=== PATIENT | female | born 1970 | race Caucasian/White ===

== ENCOUNTER 2021-09-30 11:02 | Observation (INO) ==
[2021-09-30] MEDS ORDERED: MORPHINE SULFATE INJ 2 MG INJ IVP PRN ×2 (12:00→13:00)
[2021-09-30] MEDS ORDERED: NORCO 7.5/325 MG TAB PO PRN (12:00)
--- NOTE | 2021-09-30 12:27 | DR.PROGNOT ---
Hospital Progress Notes - Progress Note for Day of: Progress Note Date: 09/30/21 - Chief Complaint Chief Complaint: c/o epigastric and RUQ pain more after any kind of food with nausea .. the pain is severe at times . she in having Wt loss as well . had GB US and biliary scan with normal findings . - Past Medical Family Social History Past Med/Fam/Surg Hx: No changes since H&P Allergies: Allergies latex Allergy (Verified 12/18/20 09:36) clarithromycin [From Biaxin] Adverse Reaction (Verified 12/18/20 09:36) - Review Of Systems ROS: No change since H&P - Vital Signs Vital Signs: Temperature 98.0 F Pulse Rate [Right Radial] 84 Respiratory Rate 20 Blood Pressure [Left Arm] 128/62 - Physical Exam Oriented: Normal Eyes: Normal Ear: Normal Nose: Normal Throat: Normal Cardiovascular: Normal : Normal GI:Auscultation: Decreased GI:Palpation: Normal GI: Tenderness: RUQ, Epigastric (soft abdomen with moderate epigastric and RUQ tenderness ) - Assessment and Plan 1: abdominal pain . PUD . Gastritis . cholecystitis . for EGD .
[2021-09-30 12:40] LABS: BASOPHILS % (AUTO) 0.5 % (0.2-1.0); EOSINOPHILS % (AUTO) 0.7 % (0.9-2.9); HEMATOCRIT 34.6 % (36.0-47.0); HEMOGLOBIN 11.8 g/dL (12.0-16.0); LYMPHOCYTES # (AUTO) 1.5 X10^3/uL (1.3-2.9); MEAN CORPUSCULAR HEMOGLOBIN 30.5 pg (27.0-34.0); MEAN CORPUSCULAR HGB CONC 34.1 g/dL (33.0-35.0); MEAN CORPUSCULAR VOLUME 89.6 fL (80.0-100.0); MEAN PLATELET VOLUME 8.1 fL (7.4-11.0); MONOCYTES # (AUTO) 0.5 x10^3/uL (0.3-0.8); MONOCYTES % (AUTO) 11.4 % (0.0-13.0); NEUTROPHILS # (AUTO) 2.2 x10^3/uL (2.2-4.8); NEUTROPHILS % (AUTO) 51.4 % (42.0-75.0); RED BLOOD COUNT 3.86 X10^6/uL (3.5-5.4); RED CELL DISTRIBUTION WIDTH 19.4 % (11.6-16.5); WHITE BLOOD COUNT 4.2 X10^3/uL (3.6-10.0)
[2021-09-30 12:53] LABS: ALANINE AMINOTRANSFERASE 54 Units/L (12-78); ALBUMIN 3.5 g/dL (3.4-5.0); ALKALINE PHOSPHATASE 52 Units/L (46-116); ASPARTATE AMINO TRANSFERASE 31 Units/L (15-37); BLOOD UREA NITROGEN 6 mg/dL (7-18); CALCIUM 8.5 mg/dL (8.5-10.1); CARBON DIOXIDE 25.6 mmol/L (21-32); CHLORIDE 103 mmol/L (98-107); SODIUM 139 mmol/L (136-145); TOTAL PROTEIN 6.4 g/dL (6.4-8.2); eGFR NON BLACK RACES > 60 (>60)
[2021-09-30] MEDS ORDERED: DIPRIVAN VIAL 20 ML ONE (12:53)
--- NOTE | 2021-09-30 12:54 | DR.H&P ---
H&P History & Physical for Day of: H&P Date: 09/30/21 Chief Complaint Chief Complaint: Right upper quadrant pain. Allergies Allergies Allergy/AdvReac Type Severity Reaction Status Date / Time latex Allergy Verified 12/18/20 09:36 clarithromycin [From Biaxin] AdvReac Verified 12/18/20 09:36 History of Present Illness History of Present Illness: This is a 51-year-old white female who was direct admitted by me today for intractable right upper quadrant pain. She reports having the right upper quadrant pain for a number of months now. It is worse when she is eating. The pain is burning in sensation and sharp in nature. She reports having lost nearly 30 pounds in the last number of months because of this pain is causing her to be unable to eat. She has nausea and occasional vomiting with this pain. Denies diarrhea, chest pain, cough and also reports some shortness of breath at times. She denies melena and hematochezia as well. Past Medical History Past Medical History: Anxiety, Depression, Migraines, GERD, Headaches and Hypothyroidism Past Surgical History Surgical History: Hysterectomy and Thyroidectomy Family History Family Medical History: Diabetes Mellitus, [place], Coronary Artery Disease, Heart Failure and Hypertension Social History Does patient currently use any type of tobacco product: No Have you used tobacco products in the last 12 months: No Alcohol Use: Occasionally Drug Use: None Medications Home Medications: latex Allergy (Verified 12/18/20 09:36) clarithromycin [From Biaxin] Adverse Reaction (Verified 12/18/20 09:36) Labs Result Diagrams: 09/30/21 12:23 09/30/21 12:23 Labs: Laboratory WBC 4.2 X10^3/uL (3.6-10.0) 09/30/21 12: RBC 3.86 X10^6/uL (3.5-5.4) 09/30/21 12: Hgb 11.8 g/dL (12.0-16.0) L 09/30/21 12: Hct 34.6 % (36.0-47.0) L 09/30/21 12:23 MCV 89.6 fL (80.0-100.0) 09/30/21 12: MCH 30.5 pg (27.0-34.0) 09/30/21 12: MCHC 34.1 g/dL (33.0-35.0) 09/30/21 12: RDW 19.4 % (11.6-16.5) H 09/30/21 12: Plt Count 337 X10^3/uL (150.0-450.0) 09/30/21 12: MPV 8.1 fL (7.4-11.0) 09/30/21 12: Neut % (Auto) 51.4 % (42.0-75.0) 09/30/21 12: Lymph % (Auto) 36.0 % (21.0-51.0) 09/30/21 12: [place] % (Auto) 11.4 % (0.0-13.0) 09/30/21 12: Eos % (Auto) 0.7 % (0.9-2.9) L 09/30/21 12: Baso % (Auto) 0.5 % (0.2-1.0) 09/30/21 12: Neut # (Auto) 2.2 x10^3/uL (2.2-4.8) 09/30/21 12: Lymph # (Auto) 1.5 X10^3/uL (1.3-2.9) 09/30/21 12: [place] # (Auto) 0.5 x10^3/uL (0.3-0.8) 09/30/21 12: Eos # (Auto) 0.0 x10^3/uL (0.0-0.2) 09/30/21 12: Baso # (Auto) 0.0 X10^3/uL (0.0-0.1) 09/30/21 12: Absolute Nucleated RBC 0.1 /100WBC 09/30/21 12:23 Review of Systems Constitutional: Weakness Eyes: No Symptoms Reported ENT: No Symptoms Reported Respiratory: Shortness of Breath Cardiovascular: No Symptoms Reported Gastrointestinal: Nausea, Vomiting and Abdominal Pain Genitourinary: No Symptoms Reported Musculoskeletal: No Symptoms Reported Skin: No Symptoms Reported Neurological: No Symptoms Reported Physical Exam Vital Signs: Temperature 98.0 F Pulse Rate [Right Radial] 84 Respiratory Rate 20 Blood Pressure [Left Arm] 128/62 O2 Sat by Pulse Oximetry 99 Oriented: Normal, Time, Person and Place Eyes: Normal Ear: Normal Nose: Normal Throat: Normal Respiratory: Clear Throughout Cardiovascular: Normal : Normal Auscultation: Bowel Sounds: Normal Palpation: Normal Tenderness: RUQ Skin: Normal Musculoskeletal: Normal Psychiatric: Normal Mood Description: Calm Affect: Normal Speech Pattern: Clear and Appropriate Assessment/Plan (1) Right upper quadrant pain: Status: Acute Plan: Check gallbladder ultrasound. Check LFTs. Consult general surgeon Dr. Liu. (2) History of hypothyroidism: Status: Acute Plan: continue home thyroid medication (3) Nausea and vomiting: Status: Acute Plan: IV Zofran. (4) Anemia: Narrative Support Text: The patient has a history of chronic anemia. Status: Acute Plan: Monitor hemoglobin daily. Review H&P Reviewed: Yes Patient was examined?: Yes
[2021-09-30] MEDS ORDERED: D5 LR 1,000 ML 1,000 ML IV ONE (12:55)
[2021-09-30] MEDS: NS 1,000 ML IV 1,000 ML IV SCH ×2 (13:44→21:34)
[2021-09-30] MEDS: PROTONIX INJ 40 MG VIAL IVP SCH (13:46)
[2021-09-30 13:50] VITALS: BMI 18.5
--- NOTE | 2021-09-30 17:13 | US ---
HISTORYReason For StudySTUDYGALL BLADDERCOMPARISONNoneTECHNIQUEMultiple cordova scale and color flow Doppler images of the right upper quadrant were obtained.FINDINGSThe liver is normal in echotexture and size . No focal intraparenchymal mass or intrahepatic biliary ductal dilatation can be observed. The gallbladder fails to demonstrate evidence for cholelithiasis or layering sludge . The common bile duct is unremarkable measuring 2 mm in width.. No pericholecystic fluid or gallbladder wall thickening can be observed .The right kidney appears normal in size without focal parenchymal mass or nephrolithiasis. The right kidney measurers 9 cm in length no hydronephrosis or perirenal fluid can be observed. The pancreatic head and body are unremarkable. The pancreatic tail is largely obscured by overlying bowel gas.IMPRESSIONUnremarkable examination of the right upper quadrant.Electronically signed by: ONEYDA BOB (Sep 30, 2021 17:13:09)
[2021-09-30] MEDS: ZOFRAN INJ 4 MG VIAL IVP PRN (23:21)
[2021-10-01 05:15] LABS: BASOPHILS % (AUTO) 0.8 % (0.2-1.0); EOSINOPHILS # (AUTO) 0.1 x10^3/uL (0.0-0.2); EOSINOPHILS % (AUTO) 1.5 % (0.9-2.9); HEMOGLOBIN 10.2 g/dL (12.0-16.0); LYMPHOCYTES # (AUTO) 1.7 X10^3/uL (1.3-2.9); LYMPHOCYTES % (AUTO) 40.4 % (21.0-51.0); MEAN CORPUSCULAR HEMOGLOBIN 30.4 pg (27.0-34.0); MEAN CORPUSCULAR HGB CONC 33.8 g/dL (33.0-35.0); MEAN PLATELET VOLUME 8.5 fL (7.4-11.0); MONOCYTES # (AUTO) 0.5 x10^3/uL (0.3-0.8); MONOCYTES % (AUTO) 11.6 % (0.0-13.0); NEUTROPHILS # (AUTO) 1.9 x10^3/uL (2.2-4.8); NEUTROPHILS % (AUTO) 45.7 % (42.0-75.0); RED BLOOD COUNT 3.34 X10^6/uL (3.5-5.4); RED CELL DISTRIBUTION WIDTH 19.1 % (11.6-16.5); WHITE BLOOD COUNT 4.1 X10^3/uL (3.6-10.0)
[2021-10-01 05:32] LABS: ALANINE AMINOTRANSFERASE 43 Units/L (12-78); ALBUMIN 2.6 g/dL (3.4-5.0); ALKALINE PHOSPHATASE 43 Units/L (46-116); ASPARTATE AMINO TRANSFERASE 27 Units/L (15-37); BLOOD UREA NITROGEN 4 mg/dL (7-18); CALCIUM 7.8 mg/dL (8.5-10.1); CARBON DIOXIDE 23.7 mmol/L (21-32); CHLORIDE 108 mmol/L (98-107); COR CA(FOR HYPOALB) 8.9 mg/dL (8.5-10.1); CREATININE 0.74 mg/dL (0.55-1.02); SODIUM 141 mmol/L (136-145); TOTAL PROTEIN 5.2 g/dL (6.4-8.2); eGFR NON BLACK RACES > 60 (>60)
[2021-10-01] MEDS: NS 1,000 ML IV 1,000 ML IV SCH ×3 (05:51→17:15)
[2021-10-01] MEDS: PROTONIX INJ 40 MG VIAL IVP SCH (08:19)
--- NOTE | 2021-10-01 12:01 | DR.PROGNOT ---
Hospital Progress Notes - Progress Note for Day of: Progress Note Date: 10/01/21 - Chief Complaint Chief Complaint: c/o epigastric and RUQ pain today .. lab work was WNL. EGD showed moderate gastritis .no ulcers, obstruction or bleeding. afebrile .. soft , flat abdomen .. - Past Medical Family Social History Past Med/Fam/Surg Hx: No changes since H&P Allergies: Allergies latex Allergy (Verified 09/30/21 13:10) clarithromycin [From Biaxin] Adverse Reaction (Verified 09/30/21 13:10) - Review Of Systems ROS: No change since H&P - Vital Signs Vital Signs: Temperature 98.5 F Pulse Rate [Right Radial] 80 Respiratory Rate 18 Blood Pressure [Left Arm] 136/66 O2 Sat by Pulse Oximetry 99 - Physical Exam Oriented: Normal, Time, Person, Place Eyes: Normal Ear: Normal Nose: Normal Throat: Normal Cardiovascular: Normal : Normal GI:Auscultation: Normal GI:Palpation: Normal GI: Tenderness: RUQ Skin: Normal Musculoskeletal: Normal Psychiatric: Normal Mood Description: Calm Affect: Normal Speech Pattern: Clear, Appropriate - Laboratory and Diagnostics Result Diagrams: 10/01/21 04:36 10/01/21 04:36 Labs: Laboratory WBC 4.1 X10^3/uL (3.6-10.0) 10/01/21 04:36 RBC 3.34 X10^6/uL (3.5-5.4) L 10/01/21 04:36 Hgb 10.2 g/dL (12.0-16.0) L 10/01/21 04:36 Hct 30.0 % (36.0-47.0) L 10/01/21 04:36 MCV 90.0 fL (80.0-100.0) 10/01/21 04:36 MCH 30.4 pg (27.0-34.0) 10/01/21 04:36 MCHC 33.8 g/dL (33.0-35.0) 10/01/21 04:36 RDW 19.1 % (11.6-16.5) H 10/01/21 04:36 Plt Count 282 X10^3/uL (150.0-450.0) 10/01/21 04:36 MPV 8.5 fL (7.4-11.0) 10/01/21 04:36 Neut % (Auto) 45.7 % (42.0-75.0) 10/01/21 04:36 Lymph % (Auto) 40.4 % (21.0-51.0) 10/01/21 04:36 Bell % (Auto) 11.6 % (0.0-13.0) 10/01/21 04:36 Eos % (Auto) 1.5 % (0.9-2.9) 10/01/21 04:36 Baso % (Auto) 0.8 % (0.2-1.0) 10/01/21 04:36 Neut # (Auto) 1.9 x10^3/uL (2.2-4.8) L 10/01/21 04:36 Lymph # (Auto) 1.7 X10^3/uL (1.3-2.9) 10/01/21 04:36 Bell # (Auto) 0.5 x10^3/uL (0.3-0.8) 10/01/21 04:36 Eos # (Auto) 0.1 x10^3/uL (0.0-0.2) 10/01/21 04:36 Baso # (Auto) 0.0 X10^3/uL (0.0-0.1) 10/01/21 04:36 Absolute Nucleated RBC 0.2 /100WBC 10/01/21 04:36 Sodium 141 mmol/L (136-145) 10/01/21 04:36 Corrected Sodium TNP 10/01/21 04:36 Potassium 3.7 mmol/L (3.5-5.1) 10/01/21 04:36 Chloride 108 mmol/L (98-107) H 10/01/21 04:36 Carbon Dioxide 23.7 mmol/L (21-32) 10/01/21 04:36 BUN 4 mg/dL (7-18) L 10/01/21 04:36 Creatinine 0.74 mg/dL (0.55-1.02) 10/01/21 04:36 Est GFR (MDRD) Af Amer > 60 (>60) 10/01/21 04:36 Est GFR (MDRD) Non-Af > 60 (>60) 10/01/21 04:36 Glucose 72 mg/dL (65-99) 10/01/21 04:36 Calcium 7.8 mg/dL (8.5-10.1) L 10/01/21 04:36 Corrected Calcium 8.9 mg/dL (8.5-10.1) 10/01/21 04:36 Total Bilirubin 0.20 mg/dL (0.2-1.0) 10/01/21 04:36 AST 27 Units/L (15-37) 10/01/21 04:36 ALT 43 Units/L (12-78) 10/01/21 04:36 Alkaline Phosphatase 43 Units/L (46-116) L 10/01/21 04:36 Total Protein 5.2 g/dL (6.4-8.2) L 10/01/21 04:36 Albumin 2.6 g/dL (3.4-5.0) L 10/01/21 04:36 Globulin 2.6 g/dL (2.5-4.5) 10/01/21 04:36 Albumin/Globulin Ratio 1.0 Ratio (1.1-2.1) L 10/01/21 04:36 Tissue Pathology To follow 09/30/21 13:07 - Assessment and Plan 1: abdominal pain . moderate Gastritis . Pr is having biliary scan today .. to advance diet after the test
[2021-10-01] MEDS ORDERED: MAALOX or MYLANTA PO PRN (12:28)
--- NOTE | 2021-10-01 12:36 | NM ---
HISTORY: RUQ pain, nausea. Abdominal pain.EXAM: Nuclear Medicine HIDA ExamTechnique: Multiple scintigraphic images of the abdomen were obtained the intravenous administration of 5.5 mCi of technetium labeled Choletec.Following distention of the gallbladder with radiotracer a bottle of Ensure was given.An estimated gallbladder ejection fraction was calculated based on this physiologic response.Findings: Homogeneous uptake of radiotracer is seen throughout the liver. The intrabiliary ductal system is observed normally. The common hepatic and common bile duct grossly appear unremarkable with normal biliary-bowel transit. The gallbladder is observed to fill normally without evidence for acute cholecystitis. After the administration of ensure, however, an abnormally low gallbladder ejection fraction of 20% (normal > 35%) is observed. Although many etiologies (certain medications, cholangitis, pancreatitis, sepsis, etc.) can account for a low gallbladder ejection fraction, in the outpatient setting, the most common etiology is chronic cholecystitis.IMPRESSION:1. Hepatobiliary imaging study demonstrates no evidence for acute hepatic dysfunction or acute cholecystitis.2. Low gallbladder ejection fraction of 20%, as discussed above.Electronically signed by: MARY PENA III (Oct 01, 2021 12:36:21)
[2021-10-01] MEDS ORDERED: DECADRON INJ ONE (17:34)
[2021-10-01] MEDS ORDERED: REGLAN INJ 10 MG VIAL ONE (17:34)
[2021-10-01] MEDS ORDERED: ZEMURON 100 MG VIAL ONE (17:34)
[2021-10-01] MEDS ORDERED: BRIDION ONE (17:34)
[2021-10-01] MEDS ORDERED: PEPCID 20 MG VIAL ONE (17:34)
[2021-10-01] MEDS ORDERED: XYLOCAINE 2 % (PLAIN) ONE (17:34)
[2021-10-01] MEDS ORDERED: TORADOL 30 MG VIAL ONE (17:34)
[2021-10-01] MEDS ORDERED: DIPRIVAN VIAL 20 ML ONE (17:34)
[2021-10-01] MEDS ORDERED: ZOFRAN INJ 4 MG VIAL ONE (17:34)
[2021-10-01] MEDS ORDERED: OFIRMEV IV 1000 MG VIAL 1,000 MG/100 ML VIAL IV ONE (17:38)
[2021-10-01] MEDS ORDERED: BARHEMSYS INJ ONE (18:25)
[2021-10-01] MEDS ORDERED: SUPRANE ONE (18:26)
--- NOTE | 2021-10-01 20:25 | PCM.PROG ---
Progress Note Progress Note for Day of Date of Exam: 10/01/21 Subjective Subjective: The patient reports she is still having epigastric and right upper quadrant pain. The gallbladder ultrasound is negative for gallstones and sludge. She had EGD yesterday that showed some gastritis but no ulcers. She is to have a HIDA scan later today and will follow up with the results when available. Past Medical Family Social History Past Med/Fam/Surg Hx: No changes since H&P Allergies: Allergies latex Allergy (Verified 09/30/21 13:10) clarithromycin [From Biaxin] Adverse Reaction (Verified 09/30/21 13:10) Review of Systems ROS: No change since H&P Vital Signs and I&O's Vital Signs: Temperature 98.9 F Pulse Rate [Right Radial] 85 Respiratory Rate 18 Blood Pressure [Left Arm] 135/70 O2 Sat by Pulse Oximetry 100 Intake and Output: Intake & Output 09/29/21 09/30/21 10/01/21 10/02/21 11:59 11:59 11:59 11:59 Intake Total 2844 / 2844 480 / 480 Balance 2844 / 2844 480 / 480 Physical Exam Oriented: Normal, Time, Person and Place Eyes: Normal Ear: Normal Nose: Normal Throat: Normal Respiratory: Normal Cardiovascular: Normal : Normal Auscultation: Bowel Sounds: Normal Tenderness: RUQ and Epigastric Skin: Normal Musculoskeletal: Normal Psychiatric: Normal Mood Description: Calm Affect: Normal Speech Pattern: Clear and Appropriate Laboratory and Diagnostics Result Diagrams: 10/01/21 04:36 10/01/21 04:36 Labs: Laboratory WBC 4.1 X10^3/uL (3.6-10.0) 10/01/21 04:36 RBC 3.34 X10^6/uL (3.5-5.4) L 10/01/21 04:36 Hgb 10.2 g/dL (12.0-16.0) L 10/01/21 04:36 Hct 30.0 % (36.0-47.0) L 10/01/21 04:36 MCV 90.0 fL (80.0-100.0) 10/01/21 04:36 MCH 30.4 pg (27.0-34.0) 10/01/21 04:36 MCHC 33.8 g/dL (33.0-35.0) 10/01/21 04:36 RDW 19.1 % (11.6-16.5) H 10/01/21 04:36 Plt Count 282 X10^3/uL (150.0-450.0) 10/01/21 04:36 MPV 8.5 fL (7.4-11.0) 10/01/21 04:36 Neut % (Auto) 45.7 % (42.0-75.0) 10/01/21 04:36 Lymph % (Auto) 40.4 % (21.0-51.0) 10/01/21 04:36 [place] % (Auto) 11.6 % (0.0-13.0) 10/01/21 04:36 Eos % (Auto) 1.5 % (0.9-2.9) 10/01/21 04:36 Baso % (Auto) 0.8 % (0.2-1.0) 10/01/21 04:36 Neut # (Auto) 1.9 x10^3/uL (2.2-4.8) L 10/01/21 04:36 Lymph # (Auto) 1.7 X10^3/uL (1.3-2.9) 10/01/21 04:36 [place] # (Auto) 0.5 x10^3/uL (0.3-0.8) 10/01/21 04:36 Eos # (Auto) 0.1 x10^3/uL (0.0-0.2) 10/01/21 04:36 Baso # (Auto) 0.0 X10^3/uL (0.0-0.1) 10/01/21 04:36 Absolute Nucleated RBC 0.2 /100WBC 10/01/21 04:36 Sodium 141 mmol/L (136-145) 10/01/21 04:36 Corrected Sodium TNP 10/01/21 04:36 Potassium 3.7 mmol/L (3.5-5.1) 10/01/21 04:36 Chloride 108 mmol/L (98-107) H 10/01/21 04:36 Carbon Dioxide 23.7 mmol/L (21-32) 10/01/21 04:36 BUN 4 mg/dL (7-18) L 10/01/21 04:36 Creatinine 0.74 mg/dL (0.55-1.02) 10/01/21 04:36 Est GFR (MDRD) Af Amer > 60 (>60) 10/01/21 04:36 Est GFR (MDRD) Non-Af > 60 (>60) 10/01/21 04:36 Glucose 72 mg/dL (65-99) 10/01/21 04:36 Calcium 7.8 mg/dL (8.5-10.1) L 10/01/21 04:36 Corrected Calcium 8.9 mg/dL (8.5-10.1) 10/01/21 04:36 Total Bilirubin 0.20 mg/dL (0.2-1.0) 10/01/21 04:36 AST 27 Units/L (15-37) 10/01/21 04:36 ALT 43 Units/L (12-78) 10/01/21 04:36 Alkaline Phosphatase 43 Units/L (46-116) L 10/01/21 04:36 Total Protein 5.2 g/dL (6.4-8.2) L 10/01/21 04:36 Albumin 2.6 g/dL (3.4-5.0) L 10/01/21 04:36 Globulin 2.6 g/dL (2.5-4.5) 10/01/21 04:36 Albumin/Globulin Ratio 1.0 Ratio (1.1-2.1) L 10/01/21 04:36 Stool H. pylori Ag Negative (NEGATIVE) 10/01/21 18:35 Tissue Pathology To follow 09/30/21 13:07 Radiology Reviewed: Yes Plan (1) Right upper quadrant pain: Status: Acute Plan: Check gallbladder ultrasound. Check LFTs. Consult general surgeon Dr. Liu. (2) History of hypothyroidism: Status: Acute Plan: continue home thyroid medication (3) Nausea and vomiting: Status: Acute Plan: IV Zofran. (4) Anemia: Status: Acute Plan: Monitor hemoglobin daily.
[2021-10-02] MEDS: ZOFRAN INJ 4 MG VIAL IVP PRN (01:17)
[2021-10-02] MEDS: NS 1,000 ML IV 1,000 ML IV SCH ×3 (02:49→14:15)
[2021-10-02 05:06] LABS: BASOPHILS % (AUTO) 0.4 % (0.2-1.0); HEMATOCRIT 31.1 % (36.0-47.0); HEMOGLOBIN 10.6 g/dL (12.0-16.0); LYMPHOCYTES # (AUTO) 1.6 X10^3/uL (1.3-2.9); LYMPHOCYTES % (AUTO) 37.5 % (21.0-51.0); MEAN CORPUSCULAR HEMOGLOBIN 30.7 pg (27.0-34.0); MEAN CORPUSCULAR VOLUME 90.2 fL (80.0-100.0); MEAN PLATELET VOLUME 8.5 fL (7.4-11.0); MONOCYTES # (AUTO) 0.6 x10^3/uL (0.3-0.8); MONOCYTES % (AUTO) 13.1 % (0.0-13.0); NEUTROPHILS # (AUTO) 2.1 x10^3/uL (2.2-4.8); RED BLOOD COUNT 3.45 X10^6/uL (3.5-5.4); RED CELL DISTRIBUTION WIDTH 19.4 % (11.6-16.5); WHITE BLOOD COUNT 4.4 X10^3/uL (3.6-10.0)
[2021-10-02 05:18] LABS: ALANINE AMINOTRANSFERASE 49 Units/L (12-78); ALBUMIN 2.8 g/dL (3.4-5.0); ALKALINE PHOSPHATASE 44 Units/L (46-116); ASPARTATE AMINO TRANSFERASE 39 Units/L (15-37); BLOOD UREA NITROGEN 3 mg/dL (7-18); CALCIUM 8.3 mg/dL (8.5-10.1); CARBON DIOXIDE 27.7 mmol/L (21-32); CHLORIDE 104 mmol/L (98-107); COR CA(FOR HYPOALB) 9.3 mg/dL (8.5-10.1); CREATININE 0.69 mg/dL (0.55-1.02); SODIUM 139 mmol/L (136-145); TOTAL PROTEIN 5.4 g/dL (6.4-8.2); eGFR NON BLACK RACES > 60 (>60)
[2021-10-02] MEDS ORDERED: K-RIDER 10 MEQ/NS 100 ML 10 MEQ/100 ML BAG IV PRN (05:28)
[2021-10-02] MEDS ORDERED: MICRO K EXTEN CAP 10 MEQ PO PRN (05:28)
[2021-10-02] MEDS ORDERED: K-DUR TAB 20 MEQ PO PRN (05:28)
[2021-10-02] MEDS ORDERED: POTASSIUM CHL 40 MEQ/NS 0.45% 500 ML IV PRN (05:28)
[2021-10-02] MEDS ORDERED: POTASSIUM CHLORIDE LIQ 20 MEQ UDC PO PRN (05:28)
[2021-10-02] MEDS ORDERED: KLOR-CON PO PRN (05:28)
[2021-10-02] MEDS ORDERED: POTASSIUM CHL 60 MEQ/NS 0.45% 500 ML IV PRN (05:28)
[2021-10-02] MEDS ORDERED: MAGNESIUM SULFATE 1 GRAM/100 mL PREMIX 1 G/100 ML BAG IV PRN (05:53)
--- NOTE | 2021-10-02 07:00 | RAD ---
HISTORYPREOP LAP KAYLA Relevant Clinical InformationSTUDYCHEST, 1 VIEWCOMPARISONJune 2020.FINDINGSThe trachea is midline. The cardiac silhouette is unremarkable. The lungs are clear without focal infiltrate or effusion. The bony thorax is unremarkable.IMPRESSIONNo acute cardiopulmonary findings or acute infiltrates seen.Equivocal right upper lobe pulmonary nodule versus artifact.This should be followed up with outpatient noncontrast chest CT imaging.Electronically signed by: MARY PENA III (Oct 02, 2021 07:00:09)
[2021-10-02] MEDS ORDERED: BACTROBAN TOPICAL OINT ONE (07:58)
[2021-10-02] MEDS ORDERED: VERSED ONE (08:17)
[2021-10-02] MEDS ORDERED: FENTANYL VIAL INJ 100 mcg ONE ×2 (08:17→09:01)
[2021-10-02] MEDS: PROTONIX INJ 40 MG VIAL IVP SCH (08:24)
[2021-10-02] MEDS ORDERED: NS 100 ML IV 100 ML ONE (08:30)
[2021-10-02] MEDS ORDERED: ANCEF VIAL 1 GRAM ONE (08:30)
[2021-10-02] MEDS ORDERED: LR 1,000 ML IV 1,000 ML IV ONE (08:30)
[2021-10-02] MEDS ORDERED: SUPRANE ONE (08:40)
[2021-10-02] MEDS ORDERED: EPHEDRINE SULFATE INJ ONE (09:06)
[2021-10-02] MEDS: DILAUDID INJ IVP PRN ×2 (09:40→09:55)
[2021-10-02] MEDS ORDERED: DILAUDID INJ ONE (09:46)
[2021-10-02] MEDS ORDERED: BARHEMSYS INJ IVP PRN (09:48)
[2021-10-02] MEDS ORDERED: REGLAN INJ 10 MG VIAL IVP PRN (09:48)
[2021-10-02] MEDS ORDERED: ZOFRAN INJ 4 MG VIAL IVP PRN (09:48)
[2021-10-02] MEDS ORDERED: PHENERGAN INJ 25 MG IM PRN (09:48)
[2021-10-02] MEDS ORDERED: BENADRYL INJ 50 MG VIAL IVP PRN (09:48)
[2021-10-02] MEDS ORDERED: BARHEMSYS INJ ONE (09:52)
[2021-10-02] MEDS ORDERED: ZOFRAN INJ 4 MG VIAL ONE (10:00)
[2021-10-02] MEDS ORDERED: TYLENOL 500 MG TAB EXTRA STRENGTH PO PRN ×2 (11:54→14:12)
[2021-10-02 15:22] VITALS: BP 142/71
== END 2021-10-02 17:36 | disposition home or self-care (01) ==
LOC: MED/SURG
PROVIDERS: ADMIT Family Medicine; ATTEND Family Medicine